=== PATIENT | male | born 1955 | race Caucasian/White ===

== ENCOUNTER 2017-10-09 08:55 | Emergency (ER) | payer OTHER ==
[~2017-10-09] VITALS: Ht 172.7 cm; Wt 136.1 kg
[~2017-10-09 08:55] MED LIST: AMLODIPINE BESY10 M1 PO; ATORVASTATIN CA80 M1 PO; HYDROCHLOROTH12.5 M3 PO; LISINOPRIL10 M1 PO; METOPROLOL SUCC25 M1 PO; PERCOCET 5-3251 EACH PO; ZETIA10 M1 PO
[2017-10-09 10:54] LABS: ABSOLUTE BASOPHIL COUNT 0 /CUMM (0.0-0.2); ABSOLUTE EOSINOPHIL COUNT 0.3 /CUMM (0.0-0.7); ABSOLUTE GRANULOCYTE CT 9.3 /CUMM (1.4-6.5); ABSOLUTE LYMPH COUNT 1.3 /CUMM (1.2-3.4); BASOPHIL % 0.4 % (0.0-2.0); EOSINOPHIL % 2.4 % (0-5); GRANULOCYTE % 77.8 % (42.2-75.2); HEMATOCRIT 42.8 % (42-52); MEAN CORPUSCULAR HGB CONC 34.5 G/DL (33.0-37.0); MEAN PLATELET VOLUME 8.2 FL (7.4-10.4); PLATELET COUNT 283 /CUMM (130-400); RBC DISTRIBUTION WIDTH 14.6 % (11.5-14.5); RED BLOOD CELL CT 4.76 /CUMM (4.70-6.10); WHITE BLOOD CELL COUNT 11.9 /CUMM (4.8-10.8)
--- NOTE | 2017-10-09 11:05 | ED CARDIAC/CP/PALPITATIONS ---
History of Present Illness General Chief Complaint: General Adult Stated Complaint: SOB,LIGHT CHEST PAIN Source: patient Exam Limitations: no limitations Vital Signs & Intake/Output Vital Signs & Intake/Output Vital Signs Date Time Temp Pulse Resp B/P B/P Pulse O2 O2 Flow FiO2 Mean Ox Delivery Rate 10/09 1117 98.6 90 13 138/82 95 Room Air 10/09 0905 98.7 83 28 147/84 97 Room Air Allergies Coded Allergies: No Known Allergies (01/25/17) Reconcile Medications Amlodipine Besylate 10 MG TABLET 1 TAB PO DAILY HEART (Reported) Atorvastatin Calcium 80 MG TABLET 1 TAB PO DAILY CHOLESTEROL (Reported) Ezetimibe (Zetia) 10 MG TABLET 1 TAB PO DAILY CHOLESTEROL (Reported) Lisinopril 10 MG TABLET 1 TAB PO DAILY HEART (Reported) Metoprolol Succinate 25 MG TAB 1 TAB PO DAILY HEART (Reported) Triage Note: PT PRESENTS TO THE ER C/O DIFF BREATHING AND CP 07/07 X1WEEK. PT RESP RATE IS 28. PT STATES THAT HE WAS SEEN AT [facility] FOR AN ASTHMA RELATED ISSUE AND WAS GIVEN STEROIDS. PT STATES THAT THIS FEELS THE SAME IS DID IN 2013 WHEN HE HAD AN UT AND TRIPLE BYPASS. Triage Nurses Notes Reviewed? yes Onset: Abrupt Duration: week(s): (1), constant, continues in ED, getting worse Timing: remote history Quality/Severity: moderate, pressure Location: substernal Radiation: no radiation Activities at Onset: none Prior Chest Pain/Card Workup: heart attack, cabg Nitro Today/Relief: no nitro taken today Aspirin Today: no aspirin today Associated Symptoms: shortness of breath, cough HPI: 62-year-old male past medical history of coronary artery disease, hypertension, hyperlipidemia, obesity, sleep apnea, asthma presents for evaluation of shortness breath chest pain. Patient states that symptoms have been ongoing for the past week. The pain was initially very mild 1 out of 10 located in the center of his chest described as pressure. He states that today the pain became much worse and feels similar to when he had an UT several years ago treated with CABG. He also reports that he has had cough and shortness of breath over the past week. This is worse on exertion. Feels like his asthma. He's been using an albuterol nebulizer without much improvement. No fevers hemoptysis lower extremity edema nausea vomiting or diarrhea. No recent surgery recent trauma. Past History Travel History Traveled to [place] past 21 day No Medical History Any Pertinent Medical History? see below for history Neurological: NONE EENT: NONE Cardiovascular: CAD, hypertension, myocardial infarction, HIGH CHOLESTEROL CABG Respiratory: obstructive sleep apnea Gastrointestinal: NONE Hepatic: NONE Renal: NONE Musculoskeletal: NONE Psychiatric: NONE Endocrine: NONE Blood Disorders: NONE Cancer(s): NONE [employer]ING [employer]/Reproductive: NONE Surgical History Surgical History: non-contributory Psychosocial History What is your primary language French Tobacco Use: Never used Family History Hx Contributory? No Review of Systems Review of Systems Constitutional: Reports: no symptoms. EENTM: Reports: no symptoms. Respiratory: Reports: see HPI, cough, short of breath, wheezing. Cardiovascular: Reports: see HPI, chest pain. GI: Reports: no symptoms. Genitourinary: Reports: no symptoms. Musculoskeletal: Reports: no symptoms. Skin: Reports: no symptoms. Neurological/Psychological: Reports: no symptoms. Hematologic/Endocrine: Reports: no symptoms. Immunologic/Allergic: Reports: no symptoms. All Other Systems: Reviewed and Negative Physical Exam Physical Exam General Appearance: well developed/nourished, no apparent distress, alert, awake Head: atraumatic, normal appearance Eyes: Bilateral: normal appearance, PERRL, EOMI. Ears, Nose, Throat: normal pharynx, normal ENT inspection, hearing grossly normal Neck: normal inspection, supple, full range of motion Respiratory: no respiratory distress, rhonchi, wheezing, chest wall tenderness palpation of the sternum right and left chest no bruising swelling or abrasions Cardiovascular: regular rate/rhythm, normal peripheral pulses Peripheral Pulses: 2+ radial (R), 2+ radial (L) Gastrointestinal: soft, non-tender Back: normal inspection, normal range of motion Extremities: normal inspection, normal range of motion, no edema Neurologic/Psych: no motor/sensory deficits, awake, alert, oriented x 3, normal gait Skin: intact, normal color, warm/dry Lymphatic: no anterior cervical kang Core Measures ACS in differential dx? Yes CVA/TIA Diagnosis No Sepsis Present: No Sepsis Focused Exam Completed? No Progress Differential Diagnosis: AMI, aortic dissection, atrial fibrillation, costochondritis, pancreatitis, pneumonia, pneumothorax, PSVT, pulmonary embolism , PUD/GERD, PVCs/PACs, rib fracture, unstable angina Plan of Care: Orders Procedure Date/time Status TROPONIN LEVEL 10/09 1315 Active EKG 10/09 1315 Active Add-on Test (ER Only) 10/09 1134 Active HEPATIC FUNCTION PANEL 10/09 1030 Complete TROPONIN LEVEL 10/09 0911 Complete MAGNESIUM 10/09 0911 Complete D-DIMER 10/09 0911 Complete CBC WITHOUT DIFFERENTIAL 10/09 0911 Complete BASIC METABOLIC PANEL 10/09 0911 Complete EKG 10/09 0857 Active Laboratory Tests 10/09/17 1030: Anion Gap 13, Estimated GFR > 60, BUN/Creatinine Ratio 23.3, Glucose 94, Calcium 9.7, Magnesium 1.8, Total Bilirubin 0.7, Direct Bilirubin 0.5 H, AST 26, ALT 31 , Alkaline Phosphatase 102, Troponin I < 0.01, Total Protein 7.6, Albumin 4.3, D -Dimer High Sensitivty < 200, CBC w Diff NO MAN DIFF REQ, RBC 4.76, MCV 90.0, MCH 31.0, MCHC 34.5, RDW 14.6 H, MPV 8.2, Gran % 77.8 H, Lymphocytes % 10.9 L , Monocytes % 8.5, Eosinophils % 2.4, Basophils % 0.4, Absolute Granulocytes 9.3 H, Absolute Lymphocytes 1.3, Absolute Monocytes 1.0 H, Absolute Eosinophils 0.3, Absolute Basophils 0 Patient seen and evaluated. He does have a history of coronary artery disease and had an UT several years ago treated with coronary artery bypass graft. He states that he's been having chest pain and shortness breath over the past week but is very mild. It became more severe today. He states it does feel similar to previous UT. Initial EKG is unchanged. Basic blood work will be obtained chest x-ray a DuoNeb was ordered. Patient walked out of the emergency department before his evaluation was complete. It is unclear why he did this. Attempted to call patient but he did not answer. Initial ED EKG: normal sinus rhythm, nonspecific ST T wave chg (ant-lateral) Departure Departure Disposition: ER WALKOUT Condition: Stable Clinical Impression Primary Impression: SOB (shortness of breath) Referrals: Unknown (PCP/Family) Departure Forms: Customer Survey General Discharge Information Critical Care Note Critical Care Note Critical Care Time: non-applicable
[2017-10-09 11:17] VITALS: BP 138/82
== END 2017-10-09 12:26 ==
LOC: ERH 08:55
PROVIDERS: Emergency Medicine
DX: R06.02 Shortness of breath (principal); R07.9 Chest pain, unspecified
CPT/HCPCS: 1263; 93005; 93010